=== PATIENT | male | born 1970 | race Caucasian/White ===

== ENCOUNTER 2024-01-24 16:00 | Emergency (ER) | payer OTHER ==
[2024-01-24 16:52] LABS: INR-International Normal Ratio 1.2; Prothrombin Time 15.6 sec (12.0-14.7)
[2024-01-24 16:53] LABS: PTT 37.7 sec (22.9-36.1)
[2024-01-24 17:02] LABS: ALT (SGPT) 12 U/L (8-55); AST (SGOT) 13 U/L (5-34); Albumin 2.5 g/dL (3.5-5.0); Alkaline Phosphatase 170 U/L (40-110); Anion Gap 17 mmol/L (10-20); BUN (Urea Nitrogen) 7 mg/dL (8.4-25.7); Bilirubin, Total 0.3 mg/dL (0.2-1.2); Calc. Creatinine Clearance 0 mL/min (70-130); Carbon Dioxide 26 mmol/L (22-29); Chloride 100 mmol/L (98-107); Estimated GFR 111; Globulin 5.2 g/dL (2.4-3.5); Glucose 107 mg/dL (70-105); Potassium 2.9 mmol/L (3.5-5.1); Protein, Total 7.7 g/dL (6.0-8.3); Sodium 140 mmol/L (136-145)
[2024-01-24 17:15] LABS: Hematocrit 32.3 % (42.0-52.0); Mean Corpuscular HGB CONC 30.8 g/dL (32.0-36.0); Mean Corpuscular Hemoglobin 25.2 pg (27.0-31.0); Mean Corpuscular Volume 81.7 fl (78.0-98.0); Platelet Count 318 10x3/uL (130-400); RBC Distribution Width 13.8 % (11.5-14.5); Red Blood Cell (RBC) Count 3.95 mill/uL (4.70-6.10); White Blood Cell (WBC) Count 5.6 10x3/uL (4.8-10.8)
[2024-01-24 17:16] LABS: Eosinophils 13 % (0-10); Hypochromia SLIGHT = 6-15 cells (100X) (0-5/hpf); Lymphocytes 14 % (21-51); MDiff Complete? YES; Manual Diff?? YES; Mean Platelet Volume 7.3 fL (7.4-10.4); Monocytes 4 % (0-10); Neutrophil 55 % (42-75); Platelet Adequacy Comment Appears Adequate; Polychromasia SLIGHT = 2-3 cells (100X) (0-2/hpf); Reactive Lymphocytes 14 % (0-10)
[2024-01-24] MEDS ORDERED: Potassium Bicarbonate/Cit Ac 20 MEQ TAB ONE (17:38)
[2024-01-24 17:47] LABS: Bilirubin Negative (Negative); Blood, Urine Large (Negative); Glucose, Urine (Dipstick) Negative (Negative); Ketone, Urine Negative (Negative); Leukocyte Large (Negative); Nitrite Positive (Negative); Protein, Urine (Dipstick) 100 mg/dL (Neg-Trace); Urobilinogen 0.2 mg/dL (Less than 2)
[2024-01-24 17:48] LABS: Clarity Very Cloudy (Clear)
[2024-01-24 17:51] LABS: CAUTI Indications for Culture Acute Hematuria; RBC/HPF Greater than 50 HPF (0-3); WBC/HPF Greater Than 50 HPF (0-3)
[2024-01-24 17:52] LABS: Bacteria/HPF 1+ HPF (None Seen); Mucous/LPF 2+ LPF (<2+); Squamous Epithelial 0-3 HPF (0-3); Urine Culture Reflex Yes Yes
[2024-01-24 19:51] LABS: Magnesium 1.4 mg/dL (1.6-2.6)
[2024-01-24] MEDS ORDERED: Sodium Chloride 0.9% 1,000 ML ONE (20:39)
[2024-01-24] MEDS ORDERED: Piperacillin/Tazobactam 4.5 GM VIAL ONE (20:39)
[2024-01-24] MEDS ORDERED: Magnesium 2 GM/50 ML BAG (IN WATER) ONE (20:39)
[2024-01-24] MEDS ORDERED: Sodium Chloride 0.9% 100 ML ONE (20:40)
[2024-01-24] MEDS ORDERED: Acetaminophen 500 MG TAB ONE (21:59)
== END 2024-01-25 01:02 | disposition short-term general hospital (02) ==
LOC: MADERS 16:00
DX: N39.0 Urinary tract infection, site not specified (principal); E87.6 Hypokalemia; E83.42 Hypomagnesemia; E03.9 Hypothyroidism, unspecified; Z55.6 Problems related to health literacy; Z79.01 Long term (current) use of anticoagulants; Z87.891 Personal history of nicotine dependence
CPT/HCPCS: 36415; 51702; 80053; 81001; 83735; 85025; 85610; 85730; 87040; 87077; 87086; 87186; 93005; 96365; 96366; 96367; J2543; J3475; J7030

== ENCOUNTER 2024-03-26 20:05 | Emergency (ER) | payer OTHER ==
[2024-03-26 21:23] LABS: #Basophils 0.1 thou/uL (0.0-0.2); #Eosinophils 0.6 thou/uL (0.0-0.7); #Lymphocytes 1.1 thou/uL (1.20-3.40); #Monocytes 0.4 thou/uL (0.11-0.59); #Neutrophils 8.6 thou/uL (1.40-6.50); %Basophils 0.6 % (0.0-1.0); %Lymphocytes 10.3 % (21.0-51.0); %Monocytes 3.3 % (0.0-10.0); %Neutrophils 79.9 % (42.0-75.0); Hematocrit 38.1 % (42.0-52.0); Hemoglobin 11.5 g/dL (14.0-18.0); Mean Corpuscular HGB CONC 30.3 g/dL (32.0-36.0); Mean Corpuscular Hemoglobin 26.3 pg (27.0-31.0); Mean Corpuscular Volume 86.8 fl (78.0-98.0); Mean Platelet Volume 5.9 fL (7.4-10.4); Platelet Count 313 10x3/uL (130-400); RBC Distribution Width 17.6 % (11.5-14.5); Red Blood Cell (RBC) Count 4.39 mill/uL (4.70-6.10); White Blood Cell (WBC) Count 10.8 10x3/uL (4.8-10.8)
[2024-03-26 21:24] LABS: Bacteria/HPF 2+ HPF (None Seen); Bilirubin Negative (Negative); Blood, Urine Small (Negative); CAUTI Indications for Culture Spinal Cord Injury; Clarity Turbid (Clear); Glucose, Urine (Dipstick) Negative (Negative); Ketone, Urine Negative (Negative); Leukocyte Small (Negative); Nitrite Positive (Negative); Protein, Urine (Dipstick) Trace mg/dL (Neg-Trace); RBC/HPF None Seen HPF (0-3); Squamous Epithelial 0-3 HPF (0-3); Urobilinogen 0.2 mg/dL (Less than 2); WBC/HPF Greater than 50 HPF (0-3); pH, Urine 5.5 (5.0-9.0)
[2024-03-26 21:25] LABS: Urine Culture Reflex Yes Yes
[2024-03-26 21:37] LABS: Bacteria/HPF 2+ HPF (None Seen); Bilirubin Negative (Negative); Blood, Urine Moderate (Negative); CAUTI Indications for Culture Spinal Cord Injury; Clarity Turbid (Clear); Glucose, Urine (Dipstick) Negative (Negative); Ketone, Urine Negative (Negative); Leukocyte Large (Negative); Nitrite Positive (Negative); Protein, Urine (Dipstick) > or equal to 300 mg/dL (Neg-Trace); RBC/HPF None Seen HPF (0-3); Squamous Epithelial 0-3 HPF (0-3); Urobilinogen 0.2 mg/dL (Less than 2); WBC/HPF Greater than 50 HPF (0-3); pH, Urine 5.5 (5.0-9.0)
[2024-03-26 21:41] LABS: ALT (SGPT) 11 U/L (8-55); AST (SGOT) 11 U/L (5-34); Albumin 3.3 g/dL (3.5-5.0); Alkaline Phosphatase 158 U/L (40-110); Anion Gap 15 mmol/L (10-20); BUN (Urea Nitrogen) 8 mg/dL (8.4-25.7); Bilirubin, Total 0.3 mg/dL (0.2-1.2); Calc. Creatinine Clearance 0 mL/min (70-130); Calcium 9.1 mg/dL (7.8-10.44); Carbon Dioxide 25 mmol/L (22-29); Chloride 102 mmol/L (98-107); Estimated GFR 107; Globulin 4.1 g/dL (2.4-3.5); Glucose 108 mg/dL (70-105); Potassium 3.2 mmol/L (3.5-5.1); Protein, Total 7.4 g/dL (6.0-8.3); Sodium 139 mmol/L (136-145)
[2024-03-26] MEDS ORDERED: Cefepime 2 GM VIAL ONE (22:33)
[2024-03-26] MEDS ORDERED: Sodium Chloride 0.9% 100 ML ONE (22:33)
[2024-03-27] MEDS ORDERED: Sodium Chloride 0.9% 1,000 ML ONE ×2 (03:39→03:42)
== END 2024-03-27 04:40 | disposition short-term general hospital (02) ==
LOC: MADERS 20:05
DX: N39.0 Urinary tract infection, site not specified (principal); G82.20 Paraplegia, unspecified; L89.159 Pressure ulcer of sacral region, unspecified stage; L89.109 Pressure ulcer of unspecified part of back, unspecified stage; L89.114 Pressure ulcer of right upper back, stage 4; L89.304 Pressure ulcer of unspecified buttock, stage 4; Z87.891 Personal history of nicotine dependence
CPT/HCPCS: 36415; 80053; 81001; 83605; 85025; 87040; 87086; 87149; 96365; J0692; J7030